=== PATIENT | female | born 1995 | race Caucasian/White ===

== ENCOUNTER 2017-01-23 11:46 | Inpatient (IN) | payer OTHER ==
[~2017-01-23] VITALS: Ht 160 cm; Wt 56.5 kg
[~2017-01-23 11:46] MED LIST: CEPH500C PO; LRT5 PO
[2017-01-23] MEDS ORDERED: BCPILLS PO (12:19)
[2017-01-23] MEDS ORDERED: MULT-1027 PO (12:19)
[2017-01-23 12:24] LABS: BASO % 0.1 %; BASO ABS # 0.01 K/uL (0-0.2); COMPLETE YES; EOS % 0.1 %; IG% 0.3 %; LYMPH % 10.9 %; LYMPH ABS # 0.85 K/uL (1.2-3.4); MEAN CELL VOLUME 83.9 fL (80-100); MEAN CORPUSCULAR HEMOGLOBIN 28.7 pg (25-34); MEAN CORPUSCULAR HGB CONC 34.2 g/dl (32-36); MEAN PLATELET VOLUME 10.2 fL (7.4-10.4); MONO % 7.8 %; NEUT % 80.8 %; PLATELET COUNT 206 K/uL (130-400); RED BLOOD COUNT 5.72 M/uL (4.2-5.4); WHITE BLOOD COUNT 7.81 K/uL (4.8-10.8)
[2017-01-23 12:25] LABS: PARTIAL THROMBOPLASTIN RATIO 1.2; PROTHROMBIN TIME (PATIENT) 10.7 SECONDS (9.0-12.0)
[2017-01-23 12:30] LABS: BUN/CREATININE RATIO 6.6 (10-20); CALCIUM 9.2 mg/dl (8.5-10.1); CREATININE 0.98 mg/dl (0.60-1.20)
[2017-01-23] MEDS ORDERED: SODIUM CHLORIDE 0.9% 1000ML 1,000 ML IV STA (12:37)
[2017-01-23] MEDS ORDERED: OPTIRAY 320 IV PRN (12:45)
--- NOTE | 2017-01-23 12:48 | DIAGNOSTIC IMAGING REPORT ---
CHEST 2 VIEWS ROUTINE CLINICAL HISTORY: Cough. Shortness of breath. COMPARISON STUDY: No previous studies for comparison. FINDINGS: Lung volumes are normal. Lungs are clear. There is no pneumothorax or pleural effusion. Cardiac size is normal. Mediastinal contours are normal. There is no evidence of pulmonary edema. IMPRESSION: No acute cardiopulmonary findings. Electronically signed by: Ayan Flores M.D. 01/23/2017 12:45 PM Dictated Date/Time: 01/23/2017 12:45 PM
[2017-01-23 12:51] LABS: PREG INTERNAL NEGATIVE QC NEG CLEAR BACKGROUND; PREG INTERNAL POSITIVE QC POS CONTROL LINE
[2017-01-23 12:51] LABS: PREG INTERNAL NEGATIVE QC NEG CLEAR BACKGROUND; PREG INTERNAL POSITIVE QC POS CONTROL LINE
--- NOTE | 2017-01-23 13:05 | DIAGNOSTIC IMAGING REPORT ---
CT ANGIOGRAPHY OF THE CHEST, PULMONARY EMBOLUS PROTOCOL CLINICAL HISTORY: Chest pain and shortness of breath. COMPARISON STUDY: Chest radiograph January 23, 2017. TECHNIQUE: Following IV administration of 85 mL of Optiray-320, helical axial images of the chest were obtained utilizing the pulmonary embolus protocol. Maximal intensity projections and sagittal and coronal reformats were viewed on an independent 3D workstation. IV contrast was administered without complication. CT DOSE: 248.64 mGy.cm FINDINGS: No pulmonary emboli are identified. There is no evidence of thoracic aortic dissection. The size of the heart is normal. There is no pericardial effusion. No enlarged thoracic lymph nodes are identified. There is no pneumothorax or pleural effusion. Central airways are patent. There are scattered mild ill-defined nodular opacities within both upper lobes. The largest is a 1.3 cm opacity within the right upper lobe which is shown on image 197 of 293. There is no cavitation. Bony thorax and upper abdomen are unremarkable. IMPRESSION: 1. No pulmonary emboli identified. 2. Mild bilateral upper lobe ill-defined airspace opacities suggestive of a mild infectious process. Electronically signed by: Ayan Flores M.D. 01/23/2017 1:03 PM Dictated Date/Time: 01/23/2017 12:58 PM
[2017-01-23] MEDS ORDERED: PIPERACILLIN/TAZOBACTAM 4.5 GM/100ML D5W IV STA (13:11)
[2017-01-23] MEDS ORDERED: OSELTAMIVIR PHOSPHATE 75 MG CAP PO STA (13:16)
[2017-01-23] MEDS ORDERED: KETOROLAC TROMETHAMINE 15 MG/ML VIAL IV PRN (14:15)
[2017-01-23] MEDS ORDERED: ONDANSETRON INJ 2 MG/ML 2 ML VIAL IV PRN (14:15)
[2017-01-23] MEDS ORDERED: MAGNESIUM HYDROXIDE SUSP 30 ML UDC PO PRN (14:15)
[2017-01-23] MEDS ORDERED: ALUMINUM/MAGNESIUM/SIMETH (MAALOX MAX) 30 ML UDC PO PRN (14:15)
[2017-01-23 14:59] VITALS: O2SAT 97; Ht 160 cm; Wt 56.5 kg
--- NOTE | 2017-01-23 15:00 | EMERGENCY ROOM VISIT NOTE ---
History Report prepared by Denise: Tesfaye Jade Under the Supervision of: Dr. Luis Alberto Amaral M.D. First contact with patient: 12:00 Chief Complaint: SHORTNESS OF BREATH Stated Complaint: SHORTNESS OF BREATH History of Present Illness The patient is a 21 year old female who presents to the Emergency Room with complaints of worsening chest pains and shortness of breath that began on Tuesday, four days prior to arrival. The patient describes her pain as a "burning" sensation, and states that it is localized in the center of her chest. Per the patient's mother the patient began complaining of feeling generally unwell, and a headache on Tuesday as well. The patient states that her chest burning and difficulty breathing has been present for the past four days but was much worse this morning when she woke up. She has had a persistent cough as well, which has been producing a brown/green mucous. She denies any vomiting. The patient did note some diffuse body aches on Tuesday night, but denies any specific lower extremity pain or swelling. She also denies noticing any new rashes. She has not taken any long trips recently. She has been on control for the past 5 years. 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 She did not have a flu shot this year. 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 A total of 10 systems reviewed and were otherwise negative. Past Medical & Surgical Medical Problems: (1) Influenza, pneumonia Social History Smoking Status: Never Smoker Alcohol Use: none Drug Use: none Marital Status: single Occupation Status: employed Current/Historical Medications Scheduled Control Pills ( Control Pills), 1 TAB PO DAILY Multiple Vitamin (Multi Vitamin), 1 TAB PO DAILY Allergies Coded Allergies: No Known Allergies (Unverified , 01/23/17) Physical Exam Vital Signs Date Time Temp Pulse Resp B/P Pulse Ox O2 Delivery O2 Flow Rate FiO2 01/23/17 13:34 115 18 141/87 97 Room Air 01/23/17 12:42 112 22 137/107 98 2.0 01/23/17 12:33 Nasal Cannula 2.0 01/23/17 11:59 128 144/101 01/23/17 11:50 37.6 142 38 83/49 96 Room Air Physical Exam Constitutional: Vital signs reviewed. Initially hypotensive. Tachypneic. Eyes: Pupils are equal round reactive to light. Conjunctiva are noninjected. ENT: Pharynx is clear without erythema or exudate. Mucous membranes are moist. Neck supple without meningeal signs. Respiratory: Patient is coughing frequently. Breath sounds are equal bilaterally. Cardiovascular: Tachycardiac rate at 107 with normal rhythm. No rubs or gallops. GI: Soft, nondistended and nontender. Bowel sounds are present. Musculoskeletal: No peripheral edema. No lower extremity tenderness. Integumentary: No cyanosis. Neurological: The patient is awake and alert. No focal deficits. Psychiatric: Anxious appearing. Medical Decision & Procedures ER Provider Diagnostic Interpretation: Radiology results as stated below per my review and the radiologist's interpretation: CT ANGIOGRAPHY OF THE CHEST, PULMONARY EMBOLUS PROTOCOL CLINICAL HISTORY: Chest pain and shortness of breath. COMPARISON STUDY: Chest radiograph January 23, 2017. TECHNIQUE: Following IV administration of 85 mL of Optiray-320, helical axial images of the chest were obtained utilizing the pulmonary embolus protocol. Maximal intensity projections and sagittal and coronal reformats were viewed on an independent 3D workstation. IV contrast was administered without complication. CT DOSE: 248.64 mGy.cm FINDINGS: No pulmonary emboli are identified. There is no evidence of thoracic aortic dissection. The size of the heart is normal. There is no pericardial effusion. No enlarged thoracic lymph nodes are identified. There is no pneumothorax or pleural effusion. Central airways are patent. There are scattered mild ill-defined nodular opacities within both upper lobes. The largest is a 1.3 cm opacity within the right upper lobe which is shown on image 197 of 293. There is no cavitation. Bony thorax and upper abdomen are unremarkable. IMPRESSION: 1. No pulmonary emboli identified. 2. Mild bilateral upper lobe ill-defined airspace opacities suggestive of a mild infectious process. Electronically signed by: Ayan Flores M.D. 01/23/2017 1:03 PM Dictated Date/Time: 01/23/2017 12:58 PM CHEST 2 VIEWS ROUTINE CLINICAL HISTORY: Cough. Shortness of breath. COMPARISON STUDY: No previous studies for comparison. FINDINGS: Lung volumes are normal. Lungs are clear. There is no pneumothorax or pleural effusion. Cardiac size is normal. Mediastinal contours are normal. There is no evidence of pulmonary edema. IMPRESSION: No acute cardiopulmonary findings. Electronically signed by: Ayan Flores M.D. 01/23/2017 12:45 PM Dictated Date/Time: 01/23/2017 12:45 PM Laboratory Results 01/23/17 12:00 Red Blood Count 5.72, Mean Corpuscular Volume 83.9, Mean Corpuscular Hemoglobin 28.7, Mean Corpuscular Hemoglobin Concent 34.2, Mean Platelet Volume 10.2, Neutrophils (%) (Auto) 80.8, Lymphocytes (%) (Auto) 10.9, Monocytes (%) (Auto) 7.8, Eosinophils (%) (Auto) 0.1, Basophils (%) (Auto) 0.1, Neutrophils # (Auto) 6.31, Lymphocytes # (Auto) 0.85, Monocytes # (Auto) 0.61, Eosinophils # (Auto) 0.01, Basophils # (Auto) 0.01 01/23/17 12:00 Test 01/23/17 12:00 01/23/17 12:10 01/23/17 12:16 01/23/17 13:25 White Blood Count 7.81 K/uL (4.8-10.8) Red Blood Count 5.72 M/uL (4.2-5.4) Hemoglobin 16.4 g/dL (12.0-16.0) Hematocrit 48.0 % (37-47) Mean Corpuscular Volume 83.9 fL (80-100) Mean Corpuscular Hemoglobin 28.7 pg (25-34) Mean Corpuscular Hemoglobin Concent 34.2 g/dl (32-36) Platelet Count 206 K/uL (130-400) Mean Platelet Volume 10.2 fL (7.4-10.4) Neutrophils (%) (Auto) 80.8 % Lymphocytes (%) (Auto) 10.9 % Monocytes (%) (Auto) 7.8 % Eosinophils (%) (Auto) 0.1 % Basophils (%) (Auto) 0.1 % Neutrophils # (Auto) 6.31 K/uL (1.4-6.5) Lymphocytes # (Auto) 0.85 K/uL (1.2-3.4) Monocytes # (Auto) 0.61 K/uL (0.11-0.59) Eosinophils # (Auto) 0.01 K/uL (0-0.5) Basophils # (Auto) 0.01 K/uL (0-0.2) RDW Standard Deviation 38.1 fL (36.4-46.3) RDW Coefficient of Variation 12.6 % (11.5-14.5) Immature Granulocyte % (Auto) 0.3 % Immature Granulocyte # (Auto) 0.02 K/uL (0.00-0.02) Prothrombin Time 10.7 SECONDS (9.0-12.0) Prothromb Time International Ratio 1.0 (0.9-1.1) Activated Partial Thromboplast Time 32.2 SECONDS (21.0-31.0) Partial Thromboplastin Ratio 1.2 Anion Gap 11.0 mmol/L (3-11) Est Creatinine Clear Calc Drug Dose 73.8 ml/min Estimated GFR () 94.2 Estimated GFR (Non- 81.3 BUN/Creatinine Ratio 6.6 (10-20) Calcium Level 9.2 mg/dl (8.5-10.1) Human Chorionic Gonadotropin, Qual NEG (NEG) Bedside D-Dimer > 450 ng/mlFEU (0-450) Bedside Troponin I 0.000 ng/ml (0-0.045) Urine Test NEG (NEG) Influenza Type A Antigen Neg for Influ A (NEG) Influenza Type B Antigen POS for Influ B (NEG) Bedside Lactic Acid Venous 0.88 mmol/L (0.90-1.70) Laboratory results as reviewed by me. Medications Administered Medications (Trade) Dose Ordered Sig/Favian Route Start Time Stop Time Status Last Admin Dose Admin Sodium Chloride (Nss 1000ml) 1,000 ml @ 999 mls/hr Q1H1M STAT IV 01/23/17 12:37 01/23/17 13:37 DC 01/23/17 12:45 999 MLS/HR Piperacillin Sod/ Tazobactam Sod (Zosyn Iv) 4.5 gm NOW STAT IV 01/23/17 13:11 01/23/17 13:12 DC 01/23/17 13:32 4.5 GM Oseltamivir Phosphate (Tamiflu Cap) 75 mg NOW STAT PO 01/23/17 13:16 01/23/17 13:17 DC 01/23/17 13:31 75 MG ECG Indication: chest pain Rate (beats per minute): 108 Rhythm: sinus tachycardia Findings: no ectopy, other (Biphasic T-Waves inferiorly) Comparison ECG Date: no prior available ED Course 1203: The patient was evaluated in room A9. A complete history and physical exam was performed. 1237: Ordered Sodium Chloride 1000 mL @ 999 mL/hr IV. 1241: I checked on the patient at this time. Her oxygen saturation was 90% on room air and was placed on oxygen. I discussed her test results with her and her parents. They agree to a CT scan of the chest for PE. 1311: Ordered Zosyn 4.5 gm IV. 1315: I discussed further test results with the patient. She was feeling better. She remains tachycardiac at this time. 1346: Ordered Tamiflu 75 mg PO. 1336: I checked on the patient at this time, she was 96% on room air. 1338: I discussed the case with Dr. Willis - [facility] Hospitalist, he will evaluate the patient for further treatment. Medical Decision This is a 21-year-old female presents with chest pain and shortness of breath. Differential diagnosis includes pericarditis, myocarditis, pulmonary embolism, pneumonia, sepsis, influenza. I did perform a limited focused review of portions of the patient's old chart on the electronic medical record. The patient has had no recent pertinent visits to this hospital. I did evaluate the patient as noted above. IV access was established. The patient was placed on a continuous report programmer. The patient was initially hypotensive but then became hypertensive. She is very tachypneic and tachycardic. I did treat her with a liter of normal saline IV. I did order and personally review the patient's 12-lead EKG and chest x-ray as described above. Her chest x-ray does not demonstrate pneumonia. Blood cultures were ordered. I did order and review the patient's blood work as noted in the electronic medical record. Her white blood cell count is not elevated. Lactic acid is not elevated. Hemoglobin was slightly elevated likely from hemoconcentration. Her troponin is negative but her d-dimer was elevated. I did discuss the test results with the patient and her parents. I did recommend CAT scan to rule out pulmonary embolism. I did order a CT of the chest. I did review the images myself as well as the radiology report as described above. She has no evidence of pulmonary embolism but does have bilateral infiltrates in the upper lobes. I did treat her with Zosyn IV. I did order a rapid flu test which was positive for influenza B. I did reassess the patient. She is feeling better but still tachycardic and ill-appearing. I did discuss the case with the hospitalist and mattress spring encaser for further evaluation. I did treat the patient with Tamiflu. Consults Time Called: [id number] Consulting Physician: Dr. Alvarez - [facility] Hospitalist Returned Call: [phone] I discussed the case with Dr. Willis [facility] Hospitalist, he will evaluate the patient for further treatment. Impression Primary Impression: Influenza B Additional Impressions: Bilateral pneumonia Transient hypotension Scribe Attestation The scribe's documentation has been prepared under my direct and personally reviewed by me in its entirety. I confirm that the note above accurately reflects all work, treatment, procedures, and medical decision making performed by me. Departure Information Dispostion Being Evaluated By Hospitalist Referrals Maxx Benitez M.D. (PCP) Patient Instructions My [facility] Problem Qualifiers Additional Impressions: Bilateral pneumonia Pneumonia type: due to unspecified organism Lung location: upper lobe of lung Qualified Codes: J18.9 - Pneumonia, unspecified organism
[2017-01-23] MEDS: ACETAMINOPHEN 325 MG TAB PO PRN (16:26)
[2017-01-23 16:28] VITALS: BP 147/87; PULSE 107; TEMP 38.3; O2SAT 95
[2017-01-23 16:33] VITALS: O2SAT 95
[2017-01-23] MEDS: SODIUM CHLORIDE 0.9% 1000ML 1,000 ML IV SCH ×2 (16:51→22:01)
[2017-01-23] MEDS ORDERED: LEVOFLOXACIN / D5W 500 MG in PREMIXED IN D5W 100 ML IV SCH (17:00)
--- NOTE | 2017-01-23 17:37 | HISTORY & PHYSICAL EXAMINATION ---
DATE OF ADMISSION: 01/23/2017 CHIEF COMPLAINT: Cough and weakness. ADMITTING DIAGNOSIS: Influenza B pneumonia possible secondary bacterial pneumonia. 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 She presents with 4 days of respiratory symptoms. She has had a sore throat, sensation in the center of her chest, coughing up green and yellow mucus. The patient was much worse today. She had body aches on Tuesday night, had no focal specific pain. Has had no diarrhea, but has had green stools. Had no skin changes, had not done any recent travel or trips, has not been exposed to any ill people. The patient has not been in for the flu. In the ER she was found to have influenza B. A CTA of her chest did reveal some possible patchy focal areas of opacities in the bilateral upper lobes. These are very small to my review and this likely may all be influenza pneumonia. She was begun on Zosyn in the ER. This was changed to levofloxacin and blood cultures were obtained. PAST MEDICAL HISTORY: Unremarkable. MEDICATIONS: Multivitamin control. SOCIAL HISTORY: Does not smoke or drink. 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 FAMILY HISTORY: Positive for heart disease and diabetes. REVIEW OF SYSTEMS: Ten systems were reviewed and are negative unless listed above. PHYSICAL EXAMINATION: GENERAL: She is pleasant. She is ill appearing. VITAL SIGNS: Temperature 37.6, pulse is tachycardic at 115, respirations 18, BP 141/87 and O2 sats 97 on room air. HEENT: PERRL, EOMI. Oropharynx shows posterior pharynx. Her TMs are likewise clear. NECK: Without lymphadenopathy. Trachea is midline. HEART: Regular without murmurs, clicks, rubs or gallops. LUNGS: Completely clear without wheezes or crackles. SPINE: Nontender. There is no CV angle tenderness. ABDOMEN: Normoactive bowel sounds, soft, nontender, nondistended, no organomegaly. EXTREMITIES: Without cyanosis, clubbing or edema. SKIN: Without lesions, growths, bruises or bleeding. NEUROLOGICALLY: She is awake, alert and appropriate. Cranial nerves II through XII are intact. Equal symmetrical strength and sensation. LABORATORY DATA: White count 7.8, H\T\H 16 and 48, platelet count 206. BUN and creatinine are 7 and 0.98. She did have a lactic acid of 0.8. HCG negative. Urinalysis with urine negative. I have reviewed her chest x-ray and CT scan personally, there is no significant infiltrate seen. There is some very small airspace seen on the CT. ASSESSMENT: A 21-year-old female with likely influenza B pneumonia, I have covered for secondary possible bacterial pneumonia. PLAN: The patient will be admitted to our facility, hydrated aggressively, antipyretics and pain medications will be used. She will be given both Tamiflu 75 b.i.d. and levofloxacin 500 every day. We will follow her clinical course. DVT prevention is early ambulation and mechanical means unless she is here for prolonged stay. The patient may take her own control. [place]
[2017-01-23] MEDS: OSELTAMIVIR PHOSPHATE 75 MG CAP PO SCH (20:46)
[2017-01-24] MEDS: SODIUM CHLORIDE 0.9% 1000ML 1,000 ML IV SCH ×3 (05:41→22:03)
[2017-01-24 07:44] VITALS: BP 112/71; PULSE 72; TEMP 37; O2SAT 97
[2017-01-24] MEDS ORDERED: INFLUENZA ADMINISTRATION CHARGE ONE (08:00)
[2017-01-24] MEDS ORDERED: PNEUMOCOCCAL ADMINISTRATION CHARGE ONE (08:00)
[2017-01-24] MEDS ORDERED: PNEUMOCOCCAL POLYSACCHARIDES 25 MCG/0.5 ML VIAL/SYR IM. ONE (08:00)
[2017-01-24] MEDS ORDERED: INFLUENZA VIRUS QUAD VACCINE 0.5 ML SYR IM. ONE (08:00)
[2017-01-24 08:05] VITALS: BP 112/73; PULSE 74; TEMP 36.6; O2SAT 97
[2017-01-24] MEDS: OSELTAMIVIR PHOSPHATE 75 MG CAP PO SCH ×2 (08:14→21:24)
[2017-01-24 08:42] VITALS: O2SAT 97
[2017-01-24 08:42] LABS: HEMATOCRIT 41.1 % (37-47); MEAN CELL VOLUME 85.3 fL (80-100); MEAN CORPUSCULAR HEMOGLOBIN 28.2 pg (25-34); MEAN CORPUSCULAR HGB CONC 33.1 g/dl (32-36); MEAN PLATELET VOLUME 10.3 fL (7.4-10.4); PLATELET COUNT 170 K/uL (130-400); RED BLOOD COUNT 4.82 M/uL (4.2-5.4); WHITE BLOOD COUNT 8.55 K/uL (4.8-10.8)
[2017-01-24 09:15] LABS: CALCIUM 8.1 mg/dl (8.5-10.1); CREATININE 0.72 mg/dl (0.60-1.20); POTASSIUM 3.6 mmol/L (3.5-5.1)
[2017-01-24] MEDS: LEVOFLOXACIN 500 MG TAB PO SCH (10:41)
[2017-01-24 11:38] VITALS: BP 120/79; PULSE 68; TEMP 36.5; O2SAT 98
--- NOTE | 2017-01-24 12:48 | Progress Note ---
Subjective Date of Service: Jan 24, 2017. Subjective Pt evaluation today including: conversation w/ patient, physical exam, chart review, lab review, review of studies, review of inpatient medication list Pt reports persistent weakness and congestion Denies any further fevers and chills Pt ambulating in room States dry cough at this time Problem List Medical Problems: (1) Bilateral pneumonia Status: Acute (2) Influenza B Status: Acute (3) Transient hypotension Status: Acute Review of Systems Constitutional: + fatigue, + weakness, No chills, No fever Respiratory: + cough, No dyspnea on exertion, No shortness of breath, No sputum , No wheezing Cardiac: No chest pain, No orthopnea Abdomen: No constipation, No diarrhea, No nausea, No pain, No vomiting Musculoskeletal: No joint pain, No muscle pain Female : No dysuria, No urinary frequency Objective Vital Signs Date Time Temp Pulse Resp B/P Pulse Ox O2 Delivery O2 Flow Rate FiO2 01/24/17 11:38 36.5 68 16 120/79 98 Room Air 01/24/17 08:42 97 Room Air 01/24/17 08:05 36.6 74 16 112/73 97 Room Air 01/24/17 08:00 Room Air 01/24/17 07:44 37.0 72 20 112/71 97 Room Air 01/23/17 16:33 95 Room Air 01/23/17 16:28 38.3 107 20 147/87 95 Room Air 01/23/17 15:53 125 17 151/79 94 Room Air 01/23/17 14:59 97 Room Air 01/23/17 13:34 115 18 141/87 97 Room Air Physical Exam General Appearance: WD/WN, + mild distress Neck: supple, no adenopathy Respiratory/Chest: lungs clear, normal breath sounds Cardiovascular: no edema, no gallop Abdomen: non tender, soft, no organomegaly Neurologic/Psychiatric: alert, oriented x 3 Laboratory Results Last 24 Hours Test 01/23/17 13:25 01/24/17 08:22 Bedside Lactic Acid Venous 0.88 mmol/L White Blood Count 8.55 K/uL Red Blood Count 4.82 M/uL Hemoglobin 13.6 g/dL Hematocrit 41.1 % Mean Corpuscular Volume 85.3 fL Mean Corpuscular Hemoglobin 28.2 pg Mean Corpuscular Hemoglobin Concent 33.1 g/dl RDW Standard Deviation 40.5 fL RDW Coefficient of Variation 12.9 % Platelet Count 170 K/uL Mean Platelet Volume 10.3 fL Sodium Level 140 mmol/L Potassium Level 3.6 mmol/L Chloride Level 106 mmol/L Carbon Dioxide Level 27 mmol/L Anion Gap 7.0 mmol/L Blood Urea Nitrogen 8 mg/dl Creatinine 0.72 mg/dl Est Creatinine Clear Calc Drug Dose 100.5 ml/min Estimated GFR () 136.8 Estimated GFR (Non- 118.0 BUN/Creatinine Ratio 11.0 Random Glucose 112 mg/dl Calcium Level 8.1 mg/dl Assessment and Plan A 21-year-old female with likely influenza B pneumonia and treated for possible secondary possible bacterial pneumonia. Cont IVF, day# 2 levaquin and tamiflu. Encouraged ambulation. No leukocytosis and last documented fever on 01/23. Likely DC in next 24 hrs DVT prevention is early ambulation and mechanical means unless she is here for prolonged stay.
[2017-01-24] MEDS: ACETAMINOPHEN 325 MG TAB PO PRN (14:48)
[2017-01-24 14:59] VITALS: BP 115/75; PULSE 74; TEMP 36.9; O2SAT 98
[2017-01-24 23:30] VITALS: BP 143/93; PULSE 67; TEMP 36.6; O2SAT 99
[2017-01-25] MEDS: SODIUM CHLORIDE 0.9% 1000ML 1,000 ML IV SCH (06:04)
[2017-01-25 07:40] VITALS: BP 116/75; PULSE 67; TEMP 36.6; O2SAT 98
[2017-01-25] MEDS: LEVOFLOXACIN 500 MG TAB PO SCH (09:06)
[2017-01-25] MEDS: OSELTAMIVIR PHOSPHATE 75 MG CAP PO SCH ×2 (09:06→19:42)
--- NOTE | 2017-01-25 09:53 | DIAGNOSTIC IMAGING REPORT ---
CHEST 2 VIEWS ROUTINE CLINICAL HISTORY: Pneumonia. Influenza B. COMPARISON STUDY: Chest radiograph and chest CT January 23, 2017. FINDINGS: Lung volumes are normal. There is no pneumothorax or pleural effusion. There may be minimal right suprahilar opacity which was shown on prior CT. There is equivocal left suprahilar opacity. There is no evidence of pulmonary edema. IMPRESSION: Minimal suprahilar opacities which are either stable or minimally increased since prior exam. The findings suggest an infectious process. Electronically signed by: Ayan Flores M.D. 01/25/2017 9:51 AM Dictated Date/Time: 01/25/2017 9:44 AM
--- NOTE | 2017-01-25 11:00 | Progress Note ---
Progress Note Date of Service: Jan 25, 2017. Subjective: Continues with SOB and cough today. Increase in production but with clear mucous. Has been oob but has not ambulated in hallways. CXR with bilateral supra hilar opacities but no pleural effusion or large consolidations. No chest pain or tightness. Continues with malaise. Tolerating diet. Patient increasing PO intake or fluids without difficulty. No other acute complaints Review of Systems Problem List Medical Problems: (1) Bilateral pneumonia Status: Acute (2) Influenza B Status: Acute (3) Transient hypotension Status: Acute General Appearance: no apparent distress, other (appears tired) Constitutional: acknowledges: malaise, weakness, denies: chills, diaphoresis, fever EENTM: acknowledges: no symptoms reported, denies: blurred vision, double vision Respiratory: positive: cough (clear sputum) Cardiovascular: denies chest pain, denies palpitations, denies syncope Gastrointestinal/Abdominal: negative: abdominal pain, diarrhea, nausea, vomiting Genitourinary: negative hematuria Musculoskeletal: positive: other (achy generally) Skin: negative: lesions, rash Neurological/Psych: positive: no symptoms reported Hematologic/Lymphatic: positive: no symptoms reported Immunocompromise: positive: no symptoms reported All Other Systems: Reviewed and Negative Vital Signs Past 8 Hours: Last 8 Hrs Date Time Temp Pulse Resp B/P Pulse Ox O2 Delivery O2 Flow Rate FiO2 01/25/17 09:00 Room Air 01/25/17 07:40 36.6 67 16 116/75 98 Room Air Physical Exam Comments Vital Signs - as noted below Laboratory Data - as noted below Physical Exam: General - NAD Eyes - No icterus, gaze conjugate ENT - Mucosa moist, no lesions or candidiasis Neck - Supple, No JVD Lungs - No bronchospasm, rales, or rhonchi. Decreased breath sounds at the bases. Heart - Regular, rate controlled Abdomen - Soft, NT, ND, BS present Extremities - No edema, pedal pulses intact Neuro - A&OX3 Medications Medications: Medications (Trade) Dose Ordered Sig/Favian Route Start Time Stop Time Status Last Admin Dose Admin Levofloxacin (Levaquin Tab) 500 mg DAILY@11 PO 01/24/17 11:00 01/30/17 10:59 01/25/17 09:06 500 MG Laboratory Data Laboratory Data: Last Resulted CBC 01/24/17 08:22 Last Resulted BMP 01/24/17 08:22 Assessment and Plan INFLUENZA B Presented with SOB Day # 2 Tamiflu Increased cough today with new production of clear sputum No chest pain or tightness Afebrile Some parahilar opacities on CXR today B/L PNEUMONIA CXR with some parahilar areas of opacifictaion Day # 2 of Levofloxacin and Tamiflu No hypoxia Decreased breathsounds at the bases Ambulate in hallway Follow clinically ELEVATED D-DIMER CTA negative for pulmonary embolus No LE edema Patient on OBC as an outpatient DVT PROPHYLAXIS Begin to ambulate in the hallways No LE edema Disposition: Anticipate D/C tomorrow if able to ambulate without TAI and no worsening respiratory symptoms Case discussed with with Dr. Bodren. Please refer to his addendum for further recommendations. Attending Attestation: Pt seen/examined, chart reviewed, care plan d/w ROSI Ramírez. I agree w/ the tsai components of his documentation except - she is DAY #3 of tamiflu/levaquin. Pt tired; has cough; minimal dyspnea. Denies asthma or chronic lung disease. Did not have flu shot this year. VSS no fever lungs - decreased BS especially at the bases, no rales or wheeze A/P: 1. Influenza type B infection - finish tamiflu; day #3/5 today. 2. b/l upper lobe pneumonia - either 2nd to influenza or bacterial; finish levaquin; day #3/7. 3. add ventolin 2 puffs qid. d/c in AM encouraged to obtain yearly flu shot; she agrees Ronald BORDEN MD
[2017-01-25 15:58] VITALS: BP 120/77; PULSE 64; TEMP 36.7; O2SAT 97
[2017-01-25 16:00] VITALS: O2SAT 98
[2017-01-25] MEDS: ALBUTEROL HFA 8 GM INHALER INH SCH (19:42)
[2017-01-25 23:40] VITALS: BP 119/79; PULSE 60; TEMP 36.6; O2SAT 98
[2017-01-26] MEDS: ALBUTEROL HFA 8 GM INHALER INH SCH ×3 (00:18→12:30)
[2017-01-26 06:24] LABS: HEMATOCRIT 38.8 % (37-47); MEAN CELL VOLUME 85.3 fL (80-100); MEAN CORPUSCULAR HEMOGLOBIN 28.6 pg (25-34); MEAN CORPUSCULAR HGB CONC 33.5 g/dl (32-36); MEAN PLATELET VOLUME 10.3 fL (7.4-10.4); PLATELET COUNT 221 K/uL (130-400); RED BLOOD COUNT 4.55 M/uL (4.2-5.4)
[2017-01-26 06:40] LABS: BUN/CREATININE RATIO 8.9 (10-20); CALCIUM 8.6 mg/dl (8.5-10.1); CREATININE 0.62 mg/dl (0.60-1.20); POTASSIUM 3.8 mmol/L (3.5-5.1)
[2017-01-26 07:57] VITALS: BP 117/78; PULSE 66; TEMP 36.5; O2SAT 99
[2017-01-26] MEDS: OSELTAMIVIR PHOSPHATE 75 MG CAP PO SCH (09:12)
[2017-01-26] MEDS: LEVOFLOXACIN 500 MG TAB PO SCH (09:12)
[2017-01-26 15:07] VITALS: BP 136/85; PULSE 73; TEMP 36.4; O2SAT 99
[2017-01-26] MEDS ORDERED: LVQ500 PO ×2 (15:33→15:50)
[2017-01-26] MEDS ORDERED: TMF75 PO ×2 (15:33→15:50)
--- NOTE | 2017-01-26 15:36 | Discharge Instructions ---
Discharge Instructions Date of Service Jan 26, 2017. Admission Reason for Admission: Influenza, Pneumonia Discharge Discharge Diagnosis / Problem: Influenza B Pneumonia Discharge Goals Goal(s): Improve disease control Activity Recommendations Activity Limitations: per Instructions/Follow-up section . Instructions / Follow-Up Instructions / Follow-Up Primary care Physician in 1week Current Hospital Diet Patient's current hospital diet: Regular Diet Discharge Diet Recommended Diet: Regular Diet Pending Studies Studies pending at discharge: no Medical Emergencies . Who to Call and When: Medical Emergencies: If at any time you feel your situation is an emergency, please call 911 immediately. . Non-Emergent Contact Non-Emergency issues call your: Primary Care Provider . . "Provider Documentation" section prepared by Alec Mejia. VTE Core Measure Inpt VTE Proph given/why not?: Treatment not indicated
[2017-01-26 15:39] VITALS: BP 136/85; PULSE 73; TEMP 36.4; O2SAT 99
[2017-01-26 16:00] VITALS: O2SAT 99
--- NOTE | 2017-01-27 00:57 | DISCHARGE SUMMARY ---
Please see dictated H and P for full details. 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 She had 4 days' history of respiratory symptoms with sore throat, cough, productive of green yellow mucus. She presented to the Emergency Room and was found to have influenza B. CAT scan of her chest revealed bilateral infiltrates and she was started on Zosyn with Tamiflu. She was monitored in the hospital based upon her bilateral pneumonia, did extremity well and was deemed stable for discharge and she will complete a 7-day history of Levaquin and a 5-day history of Tamiflu. Time spent in review of the chart, discussion with the patient on the date of discharge is 31 minutes. CAT scan of his chest showed no pulmonary emboli, mild bilateral upper lobe ill defined air space opacities, suggestive of mild infectious process.
== END 2017-01-26 17:16 | disposition home or self-care (01) | DRG 195 ==
LOC: ENRESERVTM → ENRESERVDT → C.EDB 11:49 → C.MED 14:05 → C.4E 01-24 23:04
PROVIDERS: ADMIT Internal Medicine; ATTEND Hospitalist
DX: J11.08 Influenza due to unidentified influenza virus with specified pneumonia (principal); J15.9 Unspecified bacterial pneumonia; I95.9 Hypotension, unspecified; Z79.3 Long term (current) use of hormonal contraceptives; Z23 Encounter for immunization

== ENCOUNTER → 2017-03-21 | Outpatient (CLI) | payer OTHER ==
[~2017-03-21] MED LIST changes: +BCPILLS PO; -CEPH500C PO; -LRT5 PO; +LVQ500 PO; +MULT-1027 PO; +TMF75 PO
[2017-03-24 01:28] LABS: CHLAMYDIA TRACH RNA*** NOT DETECTED (NOT DETECTED); GC (NEIS GONORRHOEAE)RNA** NOT DETECTED (NOT DETECTED)
== END | disposition home or self-care (01) ==
LOC: C.LABSPEC 13:30
PROVIDERS: ATTEND Physician Assistant
DX: Z11.3 Encounter for screening for infections with a predominantly sexual mode of transmission (principal)

== ENCOUNTER → 2017-03-21 | Outpatient (CLI) | payer OTHER | END | disposition home or self-care (01) | LOC: C.PAPS 13:25 | PROVIDERS: ATTEND Physician Assistant | DX: Z12.4 Encounter for screening for malignant neoplasm of cervix (principal) ==

== ENCOUNTER 2021-10-19 16:24 | Observation (INO) ==
[2021-10-19] MEDS ORDERED: BETAMETH SOD PHOS/ACETATE IA 6 MG/ML ONE (17:06)
[2021-10-19] MEDS ORDERED: OXYTOCIN 30 UNITS/500 ML BAG IV PRN (17:09)
[2021-10-19] MEDS ORDERED: BETAMETH SOD PHOS/ACETATE IA 6 MG/ML IM STA (17:09)
[2021-10-19] MEDS ORDERED: LACTATED RINGER'S 1,000 ML IV PRN (17:09)
[2021-10-19] MEDS ORDERED: MAG SULFATE 4GM BOLUS FROM BAG IV ONE (17:21)
[2021-10-19] MEDS ORDERED: MAGNESIUM SULFATE 40GM / WTR 1,000 ML BAG IV ONE (17:26)
[2021-10-19] MEDS ORDERED: AZITHROMYCIN 250 MG TAB PO ONE (17:30)
[2021-10-19] MEDS ORDERED: MAGNESIUM SULFATE / WTR 40 GM/1,000 ML BAG IV SCH (17:30)
[2021-10-19] MEDS: AMPICILLIN 2,000 MG in SODIUM CHLOR 0.9% AD-VAN 100 ML IV SCH ×2 (17:34→17:46)
[2021-10-19 17:35] LABS: Hematocrit (blood only) 38.2 % (37-47); Hemoglobin 12.7 g/dL (12.0-16.0); Mean Corpuscular Hemoglobin 28.5 pg (25-34); Mean Corpuscular Hgb Conc 33.2 g/dL (32-36); Mean Corpuscular Volume 85.8 fL (80-100); Mean Platelet Volume 10.2 fL (7.4-10.4); Platelet Count 188 K/uL (130-400); RDW Coefficient of Variation 12.8 % (11.5-14.5); RDW Standard Deviation 40.2 fL (36.4-46.3); Red Blood Count 4.45 M/uL (4.2-5.4); White Blood Count 20.23 K/uL (4.8-10.8)
[2021-10-19 18:01] LABS: BUN Creatinine Ratio 12.9 (10-20); Calcium 9.1 mg/dl (8.5-10.1); Creatinine Clr Calc Pharmacy 126.9 ml/min; Est GFR (African American) 146.2 ml/min; Est GFR (Non-African American) 126.2 ml/min; Potassium 3.6 mmol/L (3.5-5.1)
--- NOTE | 2021-10-19 18:16 | History & Physical Report ---
Date of Service October 19, 2021 Assessment & Plan (1) premature rupture of membranes: Plan: Collected urine culture, GBS swab, GC/C swab. Latency antibiotics: azithromycin 1g PO given, Ampicillin 2g Q6h started Celestone for lung maturity: given 12mg betamethasone For neuroprotection: magnesium 4g bolus, 2g/hr Pat catheter, IV fluids total 125/hr. I called [facility] for transfer to tertiary center - [facility] is currently on divert status and unable to accept patient for transfer. I then called [facility] in [place] for transfer - [facility] the patient. Will do [id number] consult with M attending when he is available to call back. At least 1 hour spent in examination, evaluation of patient, coordination of care. Admission and Anticipated Discharge Date Admission Date: October 19, 2021 History of Present Illness Chief Complaint: leaking fluid, cramping Primary Care Provider: Aníbal Dickson III, YUAN 26yo @ 31 0/ presented to L&D today with complaint of leaking clear fluid and pelvic cramping. She has had watery vaginal discharge over the past 2 weeks, but states that about 12:30pm today this significantly increased and she began feeling cramping. She called the office and was directed to L&D. She notes + movement, no vaginal bleeding. No other symptoms. No recent intercourse. No fever/chills/nausea/vomiting/cough/chest pain/difficulty breathing. has otherwise been uncomplicated. Allergies Allergy/AdvReac Type Severity Reaction Status Date / Time No Known Drug Allergies Allergy Verified 10/13/21 14:17 Home Medications Medication Instructions Recorded Confirmed Type prenat.vits,lola,jxy-bblm-[id number] 1 tab PO DAILY 05/04/21 10/19/21 History Patient History Medical History Acute sinus infection Benign essential hypertension Elevated blood-pressure reading without diagnosis of hypertension Influenza, pneumonia Iron deficiency anemia Sternoclavicular joint pain Surgical History H/O wisdom tooth extraction Family History Father Hypertension Mother No significant medical problems Other No family history of adverse response to anesthesia No family history of bleeding disorder Denies family history of Colon cancer Ovarian cancer Prostate cancer Myocardial infarction Breast cancer Social History Smoking Status: Never smoker Second Hand Exposure: No; Hx Alcohol Use: No Hx Substance Use: No Preferred Language: Iranian Communication Ability: Effective Visual Impairment: No Limitations Hearing Ability: Normal Marketing Strategist Required: No Beliefs That Will Affect Care: None marital status: marital status details: Tod (28) [phone] Current Living Situation: Spouse Current Living Situation Comment: Spouse, Tod. 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 Other Information That Helps Us Care for You: No Feels Safe at Home: Yes Diet Comment: no specific diet caffeine: Yes during the past year weight has: remained stable Dental Care, Regularly: Yes Physical Activity Frequency: 5-6 Times per Week Seatbelt Use: always Sunscreen Use: Yes Do you think of yourself as: straight/heterosexual Assistive Devices: None Review of Systems All systems reviewed & are unremarkable except as noted in HPI & below Physical Exam Physical Exam: FHT Cat 1 [place] Q 8-10 min SVE 1/80/-2, on recheck 1 hour later exam was same Sterile spec exam: +ferning, +pooling, +nitrizine, +valsalva Limited bedside ultrasound: cephalic, anterior placenta, + movement and + cardiac activity, no measurable amniotic fluid Constitutional: WD/WN, vitals as above Respiratory: normal respiratory effort, lungs clear to auscultation no respiratory distress Cardiovascular: Rate/Rhythm: regular rate and regular rhythm Gastrointestinal (Abdomen): Inspection/Auscultation: abdomen normal to inspection Percussion/Palpation: abdomen soft; abdomen nontender Gravid. No s/s chorio or abruption. Skin: no rashes, warm and dry Psychiatric: A+Ox3, euthymic affect Results & Data ([facility]) Vital Signs (Past 12 Hours) Vital Signs Temp Pulse Resp BP 10/19/21 18:06 109 H 124/70 10/19/21 18:00 94 H 117/85 10/19/21 17:51 100 H 111/70 10/19/21 17:40 99 H 119/62 01/03/22 17:33 100 H 119/68 01/03/22 16:29 36.8 C 18 Coding Level of Care Code 36299 Office/Outpt Visit, Est Diagnoses premature rupture of membranes O42.919
[2021-10-19 18:40] LABS: Albumin Globulin Ratio 0.8 (0.9-2); Bilirubin,Total 0.6 mg/dl (0.2-1)
[2021-10-19] MEDS ORDERED: ONDANSETRON INJ 2 MG/ML 2 ML VIAL ONE (19:17)
--- NOTE | 2021-10-19 19:23 | Obstetrical Progress Note ---
Date of Service October 19, 2021 Assessment & Plan Admission and Anticipated Discharge Date Admission Date: October 19, 2021 Subjective Patient uncomfortable. Feeling ctx. Recheck of cervix, still /-2. I spoke with Dr Garland at [facility], will be able to accept patient. Will send by ground transport - available to leave immediately. Results & Data ([facility]) Vital Signs (Past 12 Hours) Vital Signs Temp Pulse Resp BP 10/19/21 19:20 106/55 L 10/19/21 19:17 104 H 106/51 L 10/19/21 19:10 104 H 93/51 L 10/19/21 19:05 107 H 108/52 L 10/19/21 19:02 103 H 111/59 L 10/19/21 18:55 99 H 116/59 L 10/19/21 18:50 98 H 121/64 10/19/21 18:45 96 H 116/59 L 10/19/21 18:41 99 H 121/56 L 10/19/21 18:35 96 H 115/65 10/19/21 18:31 96 H 106/60 10/19/21 18:19 96 H 114/58 L 10/19/21 18:10 96 H 18 119/69 10/19/21 18:06 109 H 124/70 10/19/21 18:00 94 H 117/85 10/19/21 17:51 100 H 111/70 10/19/21 17:40 99 H 119/62 10/19/21 17:33 100 H 119/68 10/19/21 16:29 36.8 C 18 PG Care Time/CCT Total # of Minutes Spent Total Time Spent with Patient: Total time spent is greater than 50% in coordination of care (as documented) at patient's floor/unit and/or counseling patient: Coding Level of Care Code None
[2021-10-22 07:23] LABS: Chlamydia Trach RNA DETECTED (NOT DETECTED); GC (Neis gonorrhoeae) RNA NOT DETECTED (NOT DETECTED)
== END 2021-10-19 19:36 | disposition home or self-care (01) ==
LOC: OPB 16:24 → 4S1 16:27 → INTOOBSV 17:09

== ENCOUNTER 2023-08-23 17:09 | Inpatient (IN) ==
--- NOTE | 2023-08-23 17:26 | History & Physical Report ---
Date of Service August 23, 2023 Assessment & Plan (1) Encounter for supervision of normal in multigravida, antepartum: Plan Will admit patient to L&D for evaluation and management ROM confirmed in-office with positive Nitrazine and ferning Patient comfortable. VSS. Pit as needed Epidural prn Patient in agreement. History of Present Illness Chief Complaint: LABOR CHECK Primary Care Provider: Aníbal Dickson, ELIZA, YUAN Mary is a 28 y/o female currently at IUP 39 5/7 WGA with an LAKISHA 08/25/23 as determined by certain LMP who is here for labor check. She contacted the office yesterday stating she has been having leaking of fluid and intermittent gushes that made her pad wet, but never fully saturated it. This continued until today. During her office visit, she was examined and fluid was found pooling in the vaginal canal, which was Nitrazine positive and had positive ferning, therefore confirming ROM. She was then sent to the L&D for further management. _ contractions _ movement _ fluid loss _ bloody show External FHT and external uterine monitors used * Category 1 tracing * Moderate FHT variability. Had regular appointments since 1st trimester. OB Labs: Blood Type A Positive 01/13/23 Antibody Screen NEGATIVE 01/13/23 Hemoglobin 11.5 g/dl (12.0-16.0) L 06/02/23 Hematocrit 34.6 % (37.0-47.0) L 06/02/23 Mean Corpuscular Volume 83.9 fL (80.0-100.0) 01/13/23 Platelet Count 285 K/uL (130-400) 01/13/23 Rubella IgG Antibody Immune (Immune) 01/13/23 Rapid Plasma Reagin Nonreactive (Nonreactive) 01/13/23 Hepatitis B Surface Antigen Neg (Neg) 05/11/21 Hepatitis B Surface Antigen. NON-REACTIVE (NON-REACTIVE) 01/13/23 Hepatitis C Antibody (EIA) NON-REACTIVE (NON-REACTIVE) 01/13/23 HIV (1&2) Ab and P24 Ag, 4th Gener Neg (Neg) 05/11/21 HIV (1&2) Ag and Ab Confirmation NON-REACTIVE (NON-REACTIVE) 01/13/23 Glucose 1 Hour 50 gm Load 118 mg/dl (70-130) 06/02/23 Maternal Serum Alpha Fetoprotein 28.9 ng/mL 03/23/23 OB Optional Labs: Chlamydia trachomatis RNA Not Detected (NotDetected) 01/13/23 Neisseria gonorrhoeae RNA Not Detected (NotDetected) 01/13/23 Thyroid Stimulating Hormone (TSH) 2.160 uIu/ml (0.300-4.500) 10/05/19 Alpha Fetoprotein Triple Screen SEE NOTE 03/23/23 Labs Reviewed: neg cf/sma in prior msafp neg low risk panorama Allergies Allergy/AdvReac Type Severity Reaction Status Date / Time No Known Drug Allergies Allergy Verified 08/23/23 16:24 Home Medications Medication Instructions Recorded Confirmed Type prenat.vits,lola,vvj-[id number] 1 tab PO DAILY 01/06/23 08/23/23 History Patient History Medical History premature rupture of membranes with hydronephrosis in second trimester Sternoclavicular joint pain Left Maxillary mucocele Benign essential hypertension Iron deficiency anemia Elevated blood-pressure reading without diagnosis of hypertension Acute sinus infection Influenza, pneumonia Surgical History H/O wisdom tooth extraction Family History Father Hypertension Mother No significant medical problems Other No family history of adverse response to anesthesia No family history of bleeding disorder Denies family history of Colon cancer Ovarian cancer Prostate cancer Myocardial infarction Breast cancer Social History (Updated 01/06/23 @ 10:59 by Tatiana Kessler) Smoking Status: Never smoker Second Hand Exposure: No; Do You Dip or Chew Tobacco: No; Hx Alcohol Use: No Hx Substance Use: No Preferred Language: Amharic Communication Ability: Effective Visual Impairment: No Limitations Hearing Ability: Normal Shade Maker Required: No Beliefs That Will Affect Care: None marital status: marital status details: Tod (30) [phone] Current Living Situation: Spouse Current Living Situation Comment: lives with and son 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 Feels Safe at Home: Yes Childhood Exposure to Second-Hand Smoke: No Diet: regular caffeine: Yes during the past year weight has: remained stable Dental Care, Regularly: Yes Physical Activity Frequency: 5-6 Times per Week Seatbelt Use: always Sunscreen Use: Yes Do you think of yourself as: straight/heterosexual Assistive Devices: None OB History 1 previous pregnancies * (10/20/2021) M born at 31 wga and weighed 3 lb 6.8 oz; 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 Denies shortness of breath or respiratory difficulty. no chest pain and no palpitations no dysuria no headache(s) Physical Exam Physical Exam: General: Alert, oriented x3. Afebrile. No acute distress. Eyes: Pupils equal and reactive to light bilaterally. Extraocular movement intact bilaterally. Cardiac: Regular rate and rhythm, no murmurs/rubs/gallops. Respiratory: Clear to auscultation bilaterally a/p, no wheezes/rales/rhonchi. No increased work of breathing. Symmetrical chest rise. No respiratory distress. Abdomen: Gravid; Position: Cephalic Pelvic: Lower Extremities: No lower extremity edema or swelling. No deep calf pain. Joni's negative bilaterally Genitourinary: OB Exam Abdomen: + vertex, + estimated weight (7-8 pounds) and + irregular contractions Manual OB Exam: + cervical dilation 2 cm, + cervical effacement 90% and + station -1 OB Exam Monitor Tracing: + external FHT monitor used, + external uterine monitor used, + category I and + normal FHT variability Supervising Physician Co-Signing Physician Notes Resident Physician Supervision Note: I interviewed and examined the patient. Discussed with Dr. Winter and agree with findings and plan as documented in the note. Any exceptions or clarifications are listed here: [None] Documented By: Shaye Perez MD, FACOG Resident Activity Tracking Resident Involvement: Resident Care Provided Care Provided: OB Delivery
[2023-08-23] MEDS ORDERED: OXYTOCIN 30 UNITS/500 ML BAG IV PRN ×2 (19:15)
[2023-08-23] MEDS ORDERED: LIDOCAINE 1% LOCAL 20 ML VIAL INFIL PRN (19:15)
[2023-08-23] MEDS: LACTATED RINGER'S 1,000 ML IV PRN (20:05)
[2023-08-23 20:06] LABS: Hematocrit (blood only) 35.1 % (37.0-47.0); Mean Corpuscular Hemoglobin 27.9 pg (25.0-34.0); Mean Corpuscular Hgb Conc 34.2 g/dL (32.0-36.0); Mean Corpuscular Volume 81.6 fL (80.0-100.0); Mean Platelet Volume 11.1 fL (9.4-12.4); Platelet Count 203 K/uL (130-400); RDW Coefficient of Variation 13.3 % (11.5-14.5); RDW Standard Deviation 39.2 fL (36.4-46.3)
[2023-08-24] MEDS ORDERED: ePHEDrine sulfate 50 MG/ML AMP ONE (01:47)
[2023-08-24] MEDS ORDERED: fentaNYL citrate PF 100 MCG/2 ML VIAL ONE (01:47)
[2023-08-24] MEDS ORDERED: SODIUM CHLORIDE 0.9% PF INJ 10 ML VIAL ONE (01:48)
[2023-08-24] MEDS ORDERED: LIDOCAINE 2%/EPINEPHRINE 1:200,000 20 ML PF ONE (01:48)
[2023-08-24] MEDS ORDERED: fentANYL 2 MCG/ML BUPIVacaine 0.125%-NSS 100ML BAG ONE (01:48)
[2023-08-24] MEDS ORDERED: BUPIVACAINE 0.25% PF 30 ML VIAL ONE (01:48)
[2023-08-24] MEDS: LACTATED RINGER'S 1,000 ML IV PRN (02:23)
--- NOTE | 2023-08-24 02:38 | Anesthesiology Consultation ---
Date of Service August 24, 2023 Assessment & Plan Chart Review Chart Review: Acceptable Risk for Surgery Consults Requested none History Height/Weight Height: 5 ft 3 in Weight: 69.672 kg Allergies Allergy/AdvReac Type Severity Reaction Status Date / Time No Known Drug Allergies Allergy Verified 08/23/23 16:24 Medications Home Medications Medication Instructions Recorded Confirmed Last Taken prenat.vits,lola,gcp-[id number] 1 tab PO DAILY 01/06/23 08/23/23 08/23/23 Active Medications Generic Name Dose Route Start Last Admin Trade Name Freq PRN Reason Stop Dose Admin Lactated Ringer's 1,000 mls @ 125 mls/hr 08/23/23 19:15 08/24/23 02:23 Lr IV 08/25/23 19:14 125 mls/hr .Q8H PRN Administration L&D Protocol Protocol Oxytocin 30 units in 500 mls @ 8 mls/hr 08/23/23 19:15 08/24/23 00:27 Pitocin IV 08/25/23 19:14 0.48 units/hr .Q24H PRN 8 mls/hr Labor Induction/Augmentation Titration Protocol 0.48 UNITS/HR Past Medical History Medical History premature rupture of membranes with hydronephrosis in second trimester Sternoclavicular joint pain Left Maxillary mucocele Benign essential hypertension Iron deficiency anemia Elevated blood-pressure reading without diagnosis of hypertension Acute sinus infection Influenza, pneumonia Past Family History Family History Father Hypertension Mother No significant medical problems Other No family history of adverse response to anesthesia No family history of bleeding disorder Denies family history of Colon cancer Ovarian cancer Prostate cancer Myocardial infarction Breast cancer Past Surgical History Surgical History H/O wisdom tooth extraction Social History Smoking Status: Never smoker Do You Dip or Chew Tobacco: No Hx Alcohol Use: No Hx Substance Use: No Physical Exam Vital Signs Last Vital Signs Temp 36.8 C 08/24/23 00:02 Pulse 75 08/24/23 02:36 Resp 18 08/24/23 00:02 BP 123/64 08/24/23 02:28 Pulse Ox 98 08/24/23 02:36 Testing Laboratory Results 08/23/23 19:25
[2023-08-24] MEDS ORDERED: LIDOCAINE 2% MPF LOCAL 5 ML VIAL EPI PRN (02:40)
[2023-08-24] MEDS ORDERED: BUPIVACAINE 0.25% PF 30 ML VIAL EPI STA (02:40)
[2023-08-24] MEDS ORDERED: LIDOCAINE 2%/EPINEPHRINE 1:200,000 20 ML PF EPI STA (02:40)
[2023-08-24] MEDS ORDERED: fentANYL 2 MCG/ML BUPIVacaine 0.125%-NSS 100ML BAG EPI PRN (02:40)
[2023-08-24] MEDS ORDERED: SODIUM CHLORIDE 0.9% PF INJ 10 ML VIAL EPI STA (02:40)
[2023-08-24] MEDS ORDERED: SODIUM CHLORIDE 0.9% PF INJ 10 ML VIAL EPI PRN (02:40)
[2023-08-24] MEDS ORDERED: BUPIVACAINE 0.25% PF 30 ML VIAL EPI PRN (02:40)
[2023-08-24] MEDS ORDERED: NALBUPHINE HCL 5 MG in SYRINGE 0 ML IV PRN (02:40)
[2023-08-24] MEDS ORDERED: fentaNYL citrate PF 100 MCG/2 ML VIAL EPI STA (02:40)
[2023-08-24] MEDS ORDERED: NALOXONE HCL 0.4 MG/1 ML VIAL/CARP IV PRN (02:40)
[2023-08-24] MEDS ORDERED: ePHEDrine sulfate 50 MG/ML AMP IV PRN (02:40)
[2023-08-24] MEDS ORDERED: diphenhydrAMINE 50 MG/ML VIAL IV PRN (02:40)
[2023-08-24] MEDS ORDERED: ROPIVACAINE 0.5% PF 5 MG/ML 20 ML VIAL EPI PRN (02:40)
[2023-08-24] MEDS ORDERED: fentaNYL citrate PF 100 MCG/2 ML VIAL EPI PRN (02:40)
[2023-08-24] MEDS ORDERED: NALOXONE HCL 1 MG in SODIUM CHLORIDE 0.9% 1,000 ML IV PRN (02:40)
[2023-08-24] MEDS ORDERED: BENZOCAINE 20% SPRY 85 APPLN/85 GM CAN EXT PRN (08:38)
[2023-08-24] MEDS ORDERED: OXYTOCIN 30 UNITS/500 ML BAG IV PRN (08:38)
[2023-08-24] MEDS ORDERED: bisacodyL 10 MG SUPP PR PRN (08:38)
[2023-08-24] MEDS ORDERED: ACETAMINOPHEN 325 MG TAB PO PRN (08:38)
[2023-08-24] MEDS ORDERED: DIPHTHERIA/TETANUS/PERTUSSIS Vaccine (Tdap, Age 7+yrs) 0.5mL SYR/VL IM ONE (08:38)
[2023-08-24] MEDS ORDERED: HYDROCORTISONE ACETATE 25 MG SUPP PR PRN (08:38)
--- NOTE | 2023-08-24 08:47 | Delivery Summary ---
Vaginal Delivery Summary Date of Service August 24, 2023 Vaginal Delivery Summary MARIO ALBERTOD Patient is a 28-year-old 2 para 0-1-0-1 female who presented with rupture of membranes for clear fluid. She required Pitocin augmentation of her labor. She had effective epidural analgesia. She pushed effectively over intact perineum for over 2 hours and vertex was at +3 station. Because of maternal exhaustion, a Kiwi vacuum was placed the occiput and through 1 contraction delivered the infant to [facility]. The bladder was emptied for a very small amount of urine prior to applying the vacuum. After the head was delivered, the loose nuchal cord was reduced and the rest of the infant delivered with ease. She is a female infant and was placed on the mother's abdomen for further attention and drying. After stimulation she was vigorous crying and moving all 4 limbs. After cord was obtained, the placenta was expressed intact with a three-vessel cord. bleeding was controlled with dilute Pitocin and fundal massage. Second-degree perineal laceration was repaired with 3-0 chromic in the usual fashion. Estimated blood loss 400 cc. Mother and infant were doing well after delivery. [facility] Vaginal Delivery Charge Delivery Type Details: CORKY
[2023-08-24] MEDS ORDERED: NON-FORMULARY MEDICATION (Prenat.Vits,Cal,Min-Iron-Folic tablet) PO SCH (09:00)
--- NOTE | 2023-08-24 09:15 | Anesthesia Procedure Note ---
Date of Service August 24, 2023 Anesthesia Post Epidural Note Vital Signs Vital Signs: Temp Pulse Resp BP Pulse Ox 98.8 F 86 20 147/77 H 100 08/24/23 07:05 08/24/23 09:00 08/24/23 07:05 08/24/23 09:00 08/24/23 08:11 Notes Mental Status: alert / awake / arousable and participated in evaluation Nausea / Vomiting: adequately controlled Pain: adequately controlled Airway Patency, RR, SpO2: stable & adequate BP & HR: stable & adequate Hydration State: stable & adequate Neuraxial Anesthesia: was administered and sensory block is resolving Anesthetic Complications: no major complications apparent and Pt Satisfied with anesthetic care Epidural: Removed without complications and With tip intact
[2023-08-24] MEDS: IBUPROFEN 600 MG TAB PO PRN ×2 (12:07→18:13)
[2023-08-24] MEDS: DOCUSATE SODIUM 100 MG CAP PO SCH (20:29)
[2023-08-24 21:38] VITALS: O2SAT 97
[2023-08-25] MEDS: IBUPROFEN 600 MG TAB PO PRN ×2 (03:43→11:02)
[2023-08-25 03:47] VITALS: RESP 16
--- NOTE | 2023-08-25 05:54 | Obstetrical Progress Note ---
Date of Service <Radha Winter MD - Last Filed: 08/25/23 07:06> August 25, 2023 Assessment & Plan <Radha Winter MD - Last Filed: 08/25/23 07:06> (1) Encounter for assessment: Plan Patient with the above mentioned history and findings was evaluated at bedside and found awake, alert, oriented in all spheres, afebrile, and in no acute distress. Vital signs showed no fever and blood pressures remained stable Her blood type is A pos and most recent hemoglobin is adequate at 12.0 g/dL. She is GBS negative and rubella immune. Overall, patient is doing well clinically and meeting all the desired milestones. Will continue pp care. All questions were answered. <Lisa Sandhu MD - Last Filed: 08/25/23 07:59> (1) Encounter for assessment: Subjective <Radha Winter MD - Last Filed: 08/25/23 07:06> Mary is a 28 y/o female who is now PPD # 1 following at 39 6/7. Reports feeling well overall this morning. Refers mild abdominal cramping & 3/10 pain well managed on analgesics. Voiding spontaneously. Passing flatus but has not had a bowel movement yet. Tolerating meals overnight and able to ambulate some. Some persistent lochia with some improvement this morning. . Constitutional: no fever, no chills or no sweats Denies shortness of breath or difficulty breathing Cardiovascular: no chest pain or no palpitations Breast: no breast pain Genitourinary (female): no dysuria Neurologic: no headache(s) Denies changes in vision Physical Exam <Radha Winter MD - Last Filed: 08/25/23 07:06> General: Alert. Oriented to person, time, and place. Afebrile. No acute distress. Cardiac: Regular rate and rhythm, no murmurs/rubs/gallops. Respiratory: Clear to auscultation bilaterally. No increased work of breathing. Symmetrical chest rise. No respiratory distress. Abdomen: Soft, nontender, nondistended. Bowel sounds present. Uterus: Uterine fundus firm, non-tender, and palpable below umbilicus. Lower Extremities: No lower extremity edema or swelling. No deep calf pain. Joni's negative bilaterally. Psych: Euthymic affect. Mood and affect congruence. Regular speech rate and content. Results & Data <Radha Winter MD - Last Filed: 08/25/23 07:06> Vital Signs (Past 12 Hours) Vital Signs Temp Pulse Resp BP Pulse Ox O2 Del Method 08/25/23 03:40 36.6 C 70 16 126/73 Room Air 08/24/23 23:45 37.0 C 73 18 134/80 Room Air 08/24/23 20:15 36.7 C 77 16 127/84 97 Room Air Supervising Physician <Lisa Sandhu MD - Last Filed: 08/25/23 07:59> Co-Signing Physician Notes Resident Physician Supervision Note: I interviewed and examined the patient. Discussed with Dr. Winter and agree with findings and plan as documented in the note. Any exceptions or clarifications are listed here: PP1 s/p , doing well. VSS, exam bengin and wnl. May want to dc later today but will let us know Documented By: Lisa Sandhu MD Resident Activity Tracking <Radha Winter MD - Last Filed: 08/25/23 07:06> Resident Involvement: Resident Care Provided Care Provided: OB Delivery
[2023-08-25 06:18] LABS: Hematocrit (blood only) 28.9 % (37.0-47.0); Hemoglobin 9.2 g/dl (12.0-16.0); Mean Corpuscular Hemoglobin 27.1 pg (25.0-34.0); Mean Corpuscular Hgb Conc 31.8 g/dL (32.0-36.0); Mean Corpuscular Volume 85.3 fL (80.0-100.0); Mean Platelet Volume 10.5 fL (9.4-12.4); Platelet Count 165 K/uL (130-400); RDW Coefficient of Variation 13.2 % (11.5-14.5); RDW Standard Deviation 40.7 fL (36.4-46.3); Red Blood Count 3.39 M/uL (4.20-5.40); White Blood Count 10.63 K/ul (4.8-10.8)
[2023-08-25] MEDS: DOCUSATE SODIUM 100 MG CAP PO SCH (07:34)
[2023-08-25] MEDS ORDERED: PRENATAL VITAMIN 1 TAB PO SCH (08:00)
[2023-08-25 08:23] VITALS: BP 121/73; PULSE 67; TEMP 97.5
[2023-08-25] MEDS ORDERED: bisacodyL 5 MG TABEC PO SCH (20:00)
== END 2023-08-25 14:43 | disposition home or self-care (01) | DRG 807 ==
LOC: OPB 17:09 → 4S1 17:11 → 4E2 08-24 11:27
DX: O69.81X0 Labor and delivery complicated by cord around neck, without compression, not applicable or unspecified; Z3A.39 39 weeks gestation of pregnancy; O42.12 Full-term premature rupture of membranes, onset of labor more than 24 hours following rupture; Z37.0 Single live birth; O66.5 Attempted application of vacuum extractor and forceps; O75.81 Maternal exhaustion complicating labor and delivery; O70.1 Second degree perineal laceration during delivery